=== PATIENT | female | born 1990 | race Asian ===

== ENCOUNTER 2017-02-17 17:00 | Emergency (ER) | payer OTHER ==
[~2017-02-17] VITALS: Ht 165.1 cm; Wt 61.7 kg
[2017-02-17 18:22] LABS: PLATELET COUNT 296 K/uL (152-353)
[2017-02-17 18:23] LABS: POTASSIUM 2.9 mmol/L (3.6-5.2); SODIUM 141 mmol/L (136-145)
[2017-02-17 20:47] VITALS: BP 129/86; TEMP 98
== END 2017-02-17 20:47 | disposition home or self-care (01) ==
LOC: ED 17:00
PROVIDERS: Family Medicine
DX: R56.9 Unspecified convulsions (principal); F19.90 Other psychoactive substance use, unspecified, uncomplicated; E86.0 Dehydration; E87.6 Hypokalemia; R00.0 Tachycardia, unspecified
CPT/HCPCS: 80048; 80307; 80320; 81000; 81025; 85027; 93005; 96360; 99284

== ENCOUNTER 2017-07-18 15:47 | Emergency (ER) | payer OTHER ==
[~2017-07-18] VITALS: Ht 162.6 cm; Wt 60.8 kg
[2017-07-18 16:08] VITALS: BP 109/66; TEMP 98.1
== END 2017-07-18 16:45 | disposition home or self-care (01) ==
LOC: ED 15:47
DX: K04.7 Periapical abscess without sinus (principal)
CPT/HCPCS: 99281

== ENCOUNTER 2018-05-05 12:11 | Observation (INO) | payer OTHER ==
[~2018-05-05] VITALS: Ht 160 cm; Wt 57.4 kg
[2018-05-05 12:23] VITALS: BP 107/73; TEMP 97
[2018-05-05 13:12] LABS: PLATELET COUNT 247 K/uL (152-353)
[2018-05-05 13:23] LABS: POTASSIUM 3.8 mmol/L (3.6-5.2)
[2018-05-05 15:20] VITALS: BP 104/52; TEMP 97.6; Ht 160 cm; Wt 57.4 kg
[2018-05-05 20:05] VITALS: BP 101/69; TEMP 98.1
[2018-05-05 22:17] LABS: PLATELET COUNT 215 K/uL (152-353)
[2018-05-05 22:33] LABS: POTASSIUM 3.5 mmol/L (3.6-5.2)
[2018-05-06] VITALS: BP 93/62; TEMP 98
[2018-05-06 04:00] VITALS: BP 102/70; TEMP 97.9
[2018-05-06 08:00] VITALS: BP 100/69; TEMP 97.9
[2018-05-06 10:54] LABS: PLATELET COUNT 192 K/uL (152-353)
[2018-05-06 11:04] LABS: POTASSIUM 3.9 mmol/L (3.6-5.2)
[2018-05-06 12:00] VITALS: BP 100/68; TEMP 97.5
[2018-05-06] MEDS ORDERED: DICYCLOMINE 20 MG PO (13:56)
[2018-05-06] MEDS ORDERED: ONDA4TAB3 PO (13:57)
[2018-05-06] MEDS ORDERED: OMEPRAZOLE20 M2 PO (13:57)
== END 2018-05-06 14:35 | disposition home or self-care (01) ==
LOC: ED 12:11 → MED/SURG 14:00
PROVIDERS: Family Medicine; ADMIT Family Medicine
DX: K52.89 Other specified noninfective gastroenteritis and colitis (principal); K56.7 Ileus, unspecified; E86.0 Dehydration; F11.10 Opioid abuse, uncomplicated; E87.6 Hypokalemia
CPT/HCPCS: 36415; 80053; 82150; 82272; 83690; 85027; 96365; 96366; 96375; 99220; 99284; G0378; J1650; J2405; Q9963

== ENCOUNTER 2018-10-15 03:18 | Emergency (ER) | payer OTHER ==
[~2018-10-15] VITALS: Ht 160 cm; Wt 57.2 kg
[~2018-10-15 03:18] MED LIST: DICYCLOMINE 20 MG PO; OMEPRAZOLE20 M2 PO; ONDA4TAB3 PO
[2018-10-15 03:49] VITALS: BP 128/83; TEMP 97.8
== END 2018-10-15 03:55 | disposition home or self-care (01) ==
LOC: ED 03:18
DX: K08.89 Other specified disorders of teeth and supporting structures (principal); F17.210 Nicotine dependence, cigarettes, uncomplicated
CPT/HCPCS: 99281

== ENCOUNTER 2019-04-22 20:46 | Emergency (ER) | payer OTHER ==
[~2019-04-22] VITALS: Ht 160 cm; Wt 65.8 kg
[2019-04-22 20:48] VITALS: BP 135/97; TEMP 98.1
[2019-04-22 21:35] LABS: PLATELET COUNT 184 K/uL (152-353)
[2019-04-22 21:58] LABS: PARTIAL THROMBOPLASTIN TIME 23.3 SECONDS (24.5-33.6)
== END 2019-04-22 21:30 | disposition still patient (30) ==
LOC: ED 20:46
PROVIDERS: Hospitalist
DX: O26.93 Pregnancy related conditions, unspecified, third trimester (principal); Z3A.37 37 weeks gestation of pregnancy; F19.10 Other psychoactive substance abuse, uncomplicated
CPT/HCPCS: 36415; 80053; 80307; 81000; 84702; 85027; 85610; 85730; 96360; 96375; 99284; J2405